=== PATIENT | female | born 1995 | race Caucasian/White ===

== ENCOUNTER 2024-01-14 14:13 | Outpatient (CLI) | payer MEDICAID, SELFPAY ==
[2024-01-14 17:51] LABS: Bacterial Vaginosis* Negative (Negative); Candida glab/krus NOT DETECTED (No Detected); Candida species NOT DETECTED (No Detected); Trichomonas vaginalis NOT DETECTED (No Detected)
[2024-01-14 18:22] LABS: Chlamydia DNA Amplified* NOT DETECTED (No Detected); GC DNA Amplified* NOT DETECTED (No Detected)
[2024-01-17 05:50] LABS: HPV Source Cervix; HPV, High Risk by TMA Not Detected
[2024-01-24 18:44] LABS: Pap Test Reviewed by Path Done
== END 2024-01-14 14:14 | disposition home or self-care (01) ==
PROVIDERS: Visit Provider Registered Nurse
DX: R10.2 Pelvic and perineal pain (principal); R39.15 Urgency of urination; Z12.4 Encounter for screening for malignant neoplasm of cervix; Z13.1 Encounter for screening for diabetes mellitus; Z13.6 Encounter for screening for cardiovascular disorders; Z11.3 Encounter for screening for infections with a predominantly sexual mode of transmission
CPT/HCPCS: 80061; 81513; 82565; 82947; 87086; 87186; 87481; 87491; 87591; 87624; 87625; 87661; 88141; 88142

== ENCOUNTER 2024-02-24 13:20 | Outpatient (CLI) | payer MEDICAID, SELFPAY | END 2024-02-24 13:21 | disposition home or self-care (01) | LOC: NFLDREF 13:21 | PROVIDERS: Visit Provider Obstetrics & Gynecology | DX: R39.15 Urgency of urination (principal) | CPT/HCPCS: 87086 ==